=== PATIENT | female | born 1995 | race Caucasian/White ===

== ENCOUNTER 2020-02-05 02:47 | Emergency (ER) | payer MEDICAID ==
--- NOTE | 2020-02-05 03:13 | NUR ---
PT REPORTS THAT SHE CAME INTO ED THIS AM FOR SEVERE RIGHT SIDED PAIN ON ABDOMEN, PT STATES SHE HAS A HX OF KIDNEY STONES AND CYSTS ON UTERINE. PT REPORTS BEING GIVEN MUSCLE RELAXERS FOR THE PAIN BUT DOESNT KNOW THE NAME. PT IS YELLING OUT AND CRYING IN PAIN. PT DENIES NAUSEA AND VOMITTING AT THIS TIME. JUST PAIN, PT PLACED ON SPO2/BP/ECG MONITORING. ELYSE MENDEZ AT BS FOR EVAL AND POC.
[2020-02-05] MEDS ORDERED: ONDANSETRON 2MG/ML, 2ML ONE (03:18)
[2020-02-05] MEDS ORDERED: MORPHINE SULFATE 4 MG/ML, 1ML ONE ×2 (03:18→03:40)
[2020-02-05] MEDS: MORPHINE SULFATE 4 MG/ML, 1ML IVPush PRN ×2 (03:22→03:44)
[2020-02-05 03:23] LABS: BASOPHILS % (AUTO) 1 % (0-1); EOSINOPHILS % (AUTO) 3 % (1-7); LYMPHOCYTES % (AUTO) 35 % (22-44); MEAN CORPUSCULAR HEMOGLOBIN 28.4 pg (27.0-34.8); MEAN CORPUSCULAR HGB CONC 33.8 g/dL (32.4-35.8); MEAN PLATELET VOLUME 9.4 fL (7.4-10.4); MONOCYTES % (AUTO) 5 % (2-9); NEUTROPHILS % (AUTO) 56 % (42-75); PLATELET COUNT 275 x10^3/uL (130-400); RED BLOOD COUNT 4.94 x10^6/uL (3.82-5.3); RED CELL DISTRIBUTION WIDTH 13.7 % (9.6-15.2)
[2020-02-05 03:27] LABS: MD NO
[2020-02-05] MEDS ORDERED: ONDANSETRON 2MG/ML, 2ML IVPush ONE (03:30)
[2020-02-05] MEDS ORDERED: SODIUM CHLORIDE FLUSH 10ML SYR IVF ONE (03:30)
[2020-02-05 03:31] LABS: ALBUMIN 4.2 g/dL (3.4-5.0); ANION GAP 7 mmol/L (5-15); CALCIUM 9.3 mg/dL (8.5-10.1); CHLORIDE 110 mmol/L (98-107)
[2020-02-05 03:37] LABS: ALANINE AMINOTRANSFERASE 26 U/L (12-78); ALKALINE PHOSPHATASE 99 U/L (45-117); BILIRUBIN,TOTAL 0.4 mg/dL (0.2-1.0); CREATININE 0.81 mg/dL (0.55-1.02); TOTAL PROTEIN 7.7 g/dL (6.4-8.2)
--- NOTE | 2020-02-05 03:44 | NUR ---
PT TO US AT THIS TIME. PT STILL CRYING OUT IN PAIN, MEDICATED PER MAR, ERP KJ WELLER, WCTM.
[2020-02-05] MEDS ORDERED: HYDROmorphone 1 MG/ML, 1ML INJ ONE (04:06)
[2020-02-05] MEDS ORDERED: OMNIPAQUE 350 MG/ML, 100ML BOTTLE ONE (04:08)
[2020-02-05] MEDS ORDERED: KETOROLAC 30 MG/1 ML ONE (04:10)
[2020-02-05] MEDS ORDERED: KETOROLAC 30 MG/1 ML IVPush ONE (04:30)
[2020-02-05] MEDS ORDERED: HYDROmorphone 1 MG/ML, 1ML INJ IV PRN (04:30)
--- NOTE | 2020-02-05 04:37 | NUR ---
pt states pain is decreased to 6-7/10 at this time. waiting for ct read, staight cath obtained and walked to lab, pt tolerated well. nad. saeed.
[2020-02-05 04:47] LABS: MICROSCOPIC INDICATED
--- NOTE | 2020-02-05 06:01 | NUR ---
pt provided dc instructions, verbalizes understanding, pt unable to walk with a steady gait at this point, assisted back to meg, tonny, pain decreased, wctm. mtf.
--- NOTE | 2020-02-05 06:25 | NUR ---
pt resting on gurney, nad, appears comfortable, placed on 2L o2 NC for O2 sat at 89% when resting, now pt satting 95%. wctm.
--- NOTE | 2020-02-05 06:54 | NUR ---
report to aung farris, pt care transferred at this time.
[2020-02-05 07:41] VITALS: BP 122/53
== END 2020-02-05 09:04 | disposition home or self-care (01) ==
LOC: ED 06:08
DX: N13.2 Hydronephrosis with renal and ureteral calculous obstruction (principal); N39.0 Urinary tract infection, site not specified; R31.9 Hematuria, unspecified; F17.210 Nicotine dependence, cigarettes, uncomplicated
CPT/HCPCS: 36415; 74177; 76857; 80053; 81001; 84703; 85025; 87086; 96374; 96375; 99285; 99406; J1170; J1885; J2270; J2405; Q9967; 99284